=== PATIENT | female | born 1940 | race Caucasian/White ===

== ENCOUNTER → 2023-12-12 09:29 | Outpatient (REF) | payer OTHER, SELFPAY | LOC: HWRAD 09:29 | PROVIDERS: ATTENDING PHYSICIAN Nurse Practitioner Adult Health | DX: M85.80 Other specified disorders of bone density and structure, unspecified site (principal); Z78.0 Asymptomatic menopausal state; Z12.31 Encounter for screening mammogram for malignant neoplasm of breast | CPT/HCPCS: 77063; 77067; 77080 ==

== ENCOUNTER → 2025-01-22 12:57 | Outpatient (REF) | payer OTHER, SELFPAY | LOC: HWWDC 12:57 | PROVIDERS: ATTENDING PHYSICIAN Nurse Practitioner Adult Health | DX: Z12.31 Encounter for screening mammogram for malignant neoplasm of breast (principal) | CPT/HCPCS: 77063; 77067 ==

== ENCOUNTER 2025-04-27 11:57 | Outpatient (RCR) | payer OTHER, SELFPAY | END 2025-04-27 23:59 | disposition home or self-care (01) | LOC: RPT 11:57 | PROVIDERS: ATTENDING PHYSICIAN Nurse Practitioner Adult Health | DX: M76.899 Other specified enthesopathies of unspecified lower limb, excluding foot (principal); Z73.6 Limitation of activities due to disability | CPT/HCPCS: 97110; 97161 ==

== ENCOUNTER 2025-05-28 12:37 | Outpatient (RCR) | payer OTHER, SELFPAY | END 2025-06-02 09:20 | disposition home or self-care (01) | LOC: RPT 12:37 | PROVIDERS: ATTENDING PHYSICIAN Nurse Practitioner Adult Health | DX: M76.899 Other specified enthesopathies of unspecified lower limb, excluding foot (principal); Z73.6 Limitation of activities due to disability | CPT/HCPCS: 97110; 97112 ==

== ENCOUNTER 2025-07-28 16:14 | Outpatient (RCR) | payer OTHER, SELFPAY | END 2025-07-28 23:59 | disposition home or self-care (01) | LOC: RPT 16:14 | PROVIDERS: ATTENDING PHYSICIAN Physician Assistant Medical; FAMILY PHYSICIAN Nurse Practitioner Adult Health | DX: S42.295D Other nondisplaced fracture of upper end of left humerus, subsequent encounter for fracture with routine healing (principal); Z73.6 Limitation of activities due to disability; M62.81 Muscle weakness (generalized); W18.30XD Fall on same level, unspecified, subsequent encounter | CPT/HCPCS: 97110; 97162 ==

== ENCOUNTER 2025-09-01 14:23 | Outpatient (RCR) | payer OTHER, SELFPAY | END 2025-09-01 23:59 | disposition home or self-care (01) | LOC: RPT 14:23 | PROVIDERS: ATTENDING PHYSICIAN Physician Assistant Medical; FAMILY PHYSICIAN Nurse Practitioner Adult Health | DX: S42.295D Other nondisplaced fracture of upper end of left humerus, subsequent encounter for fracture with routine healing (principal); Z73.6 Limitation of activities due to disability; M62.81 Muscle weakness (generalized); W18.30XD Fall on same level, unspecified, subsequent encounter | CPT/HCPCS: 97010; 97110; 97140 ==

== ENCOUNTER 2025-09-15 08:33 | Outpatient (RCR) | payer OTHER, SELFPAY | END 2025-09-15 23:59 | disposition home or self-care (01) | LOC: RPT 08:33 | PROVIDERS: ATTENDING PHYSICIAN Physician Assistant Medical; FAMILY PHYSICIAN Nurse Practitioner Adult Health | DX: S42.295D Other nondisplaced fracture of upper end of left humerus, subsequent encounter for fracture with routine healing (principal); Z73.6 Limitation of activities due to disability; M62.81 Muscle weakness (generalized); W18.30XD Fall on same level, unspecified, subsequent encounter | CPT/HCPCS: 97010; 97110 ==